=== PATIENT | female | born 1945 | race Caucasian/White ===

== ENCOUNTER → 2016-10-18 | Outpatient (CLI) | payer MEDICARE ==
--- NOTE | 2016-10-18 16:27 | XR ---
EXAMINATION TYPE: XR foot complete LT DATE OF EXAM: 10/18/2016 3:17 PM COMPARISON: NONE HISTORY: 71-year-old female metatarsalgia and left foot pain, lateral fifth metatarsal lump. TECHNIQUE: 3 views FINDINGS: Dorsal degenerative spurring at the talonavicular joint. There are hammertoes and tiny plan tar calcaneal spur. Osteopenia without acute fracture, subluxation, or dislocation seen. IMPRESSION: Degenerative dorsal spurring at the talonavicular joint. Osteopenia without acute fracture seen. Tiny plantar calcaneal spur.
== END | disposition home or self-care (01) ==
LOC: RADXRMAIN 14:53
PROVIDERS: ATTEND Podiatrist Foot Surgery
DX: M77.32 Calcaneal spur, left foot (principal); M85.872 Other specified disorders of bone density and structure, left ankle and foot; M79.672 Pain in left foot